=== PATIENT | female | born 1940 | race Caucasian/White ===

== ENCOUNTER 2018-10-08 11:04 | Observation (INO) | payer OTHER, MEDICAID ==
[~2018-10-08] VITALS: Ht 152.4 cm; Wt 38.1 kg
[~2018-10-08 11:04] MED LIST: ALPR1TAB6 PO; ASCO500T3 PO; ASPI-630 PO; CALC500T30 PO; DOXY100C14 PO; FOLI1TAB16 PO; MELA3TAB2 PO; PRED20TA PO; VITA1TAB19 PO
--- NOTE | 2018-10-08 11:58 | RAD ---
Indication:Shortness of breath TECHNIQUE:Portable AP chest X-ray COMPARISON: 09/26/2018. FINDINGS: Heart is normal in size. Stable silhouetting of the right hemidiaphragm. Interstitial opacities are seen. No pneumothorax. Severe bilateral glenohumeral joint osteoarthritis. Otherwise, visualized bony thorax is within normal limits. IMPRESSION: 1. Consolidation in the right lung base may be secondary to atelectasis or pneumonia. Small stable right pleural effusion. 2. Stable Interstitial opacities bilaterally may be secondary to interstitial pulmonary edema, chronic interstitial changes or atypical/viral infection. Electronically signed by: Braydon Romero DO (10/08/2018 11:55 AM) [facility]
[2018-10-08] MEDS ORDERED: IPRATRPIUM/ALBUTEROL 0.5/2.5MG 3 ML NEBU. NEB ONE (12:30)
[2018-10-08] MEDS ORDERED: IV NORMAL SALINE 1000ML BAG 1,000 ML IV ONE (12:30)
[2018-10-08 12:44] LABS: BASO % 0 % (0-3); EOS % 0 % (0-3); HEMATOCRIT 30.9 % (36.0-47.0); HEMOGLOBIN 10.6 g/dL (12.0-15.5); LYMPH # 0.2 x10^3/uL (1.0-4.8); LYMPH % 3 % (24-48); MEAN CORPUSCULAR HEMOGLOBIN 31 pg (25-35); MEAN CORPUSCULAR HGB CONC 34 g/dL (31-37); MEAN CORPUSCULAR VOLUME 91 fL (79-100); MONO # 0.3 x10^3/uL (0.0-1.1); MONO % 6 % (0-9); NEUT # 4.8 x10^3/uL (1.8-7.7); NEUT % 91 % (31-73); PLATELET COUNT 127 x10^3/uL (140-400); RED BLOOD COUNT 3.41 x10^6/uL (3.50-5.40); RED CELL DISTRIBUTION WIDTH 13.2 % (11.5-14.5); WHITE BLOOD COUNT 5.3 x10^3/uL (4.0-11.0)
[2018-10-08 12:53] LABS: BILIRUBIN,URINE NEGATIVE (NEG); CLARITY,URINE CLEAR; COLOR,URINE YELLOW; NITRITE,URINE NEGATIVE (NEG); PH,URINE 6.5; PROTEIN,URINE NEGATIVE (NEG-TRACE); UROBILINOGEN,URINE 0.2 mg/dL (0.2 mg/dL)
[2018-10-08 12:53] LABS: CALCIUM 8.7 mg/dL (8.5-10.1); GFR 53.6; POTASSIUM 4.3 mmol/L (3.5-5.1)
[2018-10-08 12:59] LABS: ALBUMIN 2.4 g/dL (3.4-5.0); ALBUMIN/GLOBULIN RATIO 0.7 (1.0-1.7); TOTAL BILIRUBIN 0.9 mg/dL (0.2-1.0); TOTAL PROTEIN 5.9 g/dL (6.4-8.2)
[2018-10-08 13:16] LABS: BACTERIA,URINE 0 /HPF (0-FEW); RBC,URINE OCC /HPF (0-2); SQUAMOUS EPITHELIAL CELL,UR OCC /LPF; WBC,URINE 0 /HPF (0-4)
[2018-10-08 13:19] LABS: % BANDS 3 % (0-9); % LYMPHS 8 % (24-48); % MONOS 2 % (0-10); % SEGS 87 % (35-66); PLT ESTIMATE ADEQUATE (ADEQUATE)
--- NOTE | 2018-10-08 14:55 | PHYS DOC ---
Past Medical History Past Medical History: Cancer, COPD, GERD Additional Past Medical Histor: Chronic back pain Past Surgical History: Appendectomy, Hysterectomy, Tonsillectomy Additional Past Surgical Histo: Bilateral mastectomy, back stimulator Alcohol Use: None Drug Use: None Adult General Chief Complaint Chief Complaint: SHORTNESS OF BREATH [facility] HPI Patient is a 78 year old female with history of stage IV lung cancer who is DNR, history COPD, history of right-sided pleural effusion, was brought here by EMS for evaluation of altered mental status and hypoxia. She is on 4 L oxygen at home chronically. Family checked her oxygen saturation today and it was fluctuating between 45% to 60% on 4 L. Patient is on oxycodone for pain every 4 hours. Patient was given 2 tablets of oxycodone last night but patient did not take them. Then this morning patient was given 2 more tablets of oxycodone and after about 30 minutes later family found HER to be very confused and so mnolent. They suspected that patient took a total of 4 tablets of of oxycodone. Patient was admitted here on September, was discharged on September 29, she was treated for COPD, pneumonia, right pleural effusion. There was no report of fever. Her family stated that patient was able to walk around yesterday with a walker, however today she had been in bed most of the time. Her family IS also concerned that she might be dehydrated. Review of Systems Review of Systems Constitutional: Denies fever or chills [] Eyes: Denies change in visual acuity, redness, or eye pain [] HENT: Denies nasal congestion or sore throat [] Respiratory: Positive for cough and shortness of breath [] Cardiovascular: No additional information not addressed in HPI [] GI: Denies abdominal pain, nausea, vomiting, bloody stools or diarrhea [] : Denies dysuria or hematuria [] Musculoskeletal: Denies back pain or joint pain [] Integument: Denies rash or skin lesions [] Neurologic: Denies headache, focal weakness or sensory changes. Positive for confusion, ALTERED MENTAL STATUS. Endocrine: Denies polyuria or polydipsia [] All other systems were reviewed and found to be within normal limits, except as documented in this note. Current Medications Current Medications Current Medications Medications (Trade) Dose Ordered Sig/Jf Start Time Stop Time Status Last Admin Dose Admin Albuterol/ Ipratropium (Duoneb) 3 ml 1X ONCE 10/08/18 12:30 10/08/18 12:31 DC 10/08/18 13:08 3 ML Sodium Chloride 1,000 ml @ 1,000 mls/hr 1X ONCE 10/08/18 12:30 10/08/18 13:29 DC 10/08/18 12:53 1,000 MLS/HR Allergies Allergies Allergies Coded Allergies Type Severity Reaction Last Updated Verified alendronate sodium Adverse Reaction Intermediate NAUSEA AND VOMITING 09/26/18 Yes aspirin Adverse Reaction Intermediate NAUSEA AND VOMITING 09/26/18 Yes Physical Exam Physical Exam Constitutional: Well developed, APPEARED SOMNOLENT, DEHYDRATED HENT: Normocephalic, atraumatic, bilateral external ears normal, oropharynx IS DRIED, no oral exudates, nose normal. [] Eyes: PERRLA, EOMI, conjunctiva normal, no discharge. [] Neck: Normal range of motion, no tenderness, supple, no stridor. [] Cardiovascular:Heart rate regular rhythm, no murmur [] Lungs & Thorax: DECREASE AIR MOVEMENT IN RIGHT LUNG BASE. Abdomen: Bowel sounds normal, soft, no tenderness, no masses, no pulsatile masses. [] Skin: Warm, dry, no erythema, no rash. [] Back: No tenderness, no CVA tenderness. [] Extremities: No tenderness, no cyanosis, no clubbing, ROM intact, no edema. [] Neurologic: Patient appeared somnolent, was able to wake up and make eye contact, talking but then went right back to sleep, normal motor function, normal sensory function, no focal deficits noted. [] Psychologic: Affect normal, judgement normal, mood normal. [] Current Patient Data Vital Signs Vital Signs Date Time Temp Pulse Resp B/P (MAP) Pulse Ox O2 Delivery O2 Flow Rate FiO2 10/08/18 15:00 102 30 89/47 (61) 95 Nasal Cannula 6.0 10/08/18 11:04 98.2 98.2 Lab Values Laboratory Tests Test 10/08/18 12:04 10/08/18 12:28 Urine Collection Type U cath Urine Color Yellow Urine Clarity Clear Urine pH 6.5 Urine Specific [place] 1.020 Urine Protein Negative mg/dL (NEG-TRACE) Urine Glucose (UA) Negative mg/dL (NEG) Urine Ketones (Stick) Negative mg/dL (NEG) Urine Blood Negative (NEG) Urine Nitrite Negative (NEG) Urine Bilirubin Negative (NEG) Urine Urobilinogen Dipstick 0.2 mg/dL (0.2 mg/dL) Urine Leukocyte Esterase Negative (NEG) Urine RBC Occ /HPF (0-2) Urine WBC 0 /HPF (0-4) Urine Squamous Epithelial Cells Occ /LPF Urine Bacteria 0 /HPF (0-FEW) White Blood Count 5.3 x10^3/uL (4.0-11.0) Red Blood Count 3.41 x10^6/uL (3.50-5.40) L Hemoglobin 10.6 g/dL (12.0-15.5) L Hematocrit 30.9 % (36.0-47.0) L Mean Corpuscular Volume 91 fL (79-100) Mean Corpuscular Hemoglobin 31 pg (25-35) Mean Corpuscular Hemoglobin Concent 34 g/dL (31-37) Red Cell Distribution Width 13.2 % (11.5-14.5) Platelet Count 127 x10^3/uL (140-400) L Neutrophils (%) (Auto) 91 % (31-73) H Lymphocytes (%) (Auto) 3 % (24-48) L Monocytes (%) (Auto) 6 % (0-9) Eosinophils (%) (Auto) 0 % (0-3) Basophils (%) (Auto) 0 % (0-3) Neutrophils # (Auto) 4.8 x10^3/uL (1.8-7.7) Lymphocytes # (Auto) 0.2 x10^3/uL (1.0-4.8) L Monocytes # (Auto) 0.3 x10^3/uL (0.0-1.1) Eosinophils # (Auto) 0.0 x10^3/uL (0.0-0.7) Basophils # (Auto) 0.0 x10^3/uL (0.0-0.2) Segmented Neutrophils % 87 % (35-66) H Band Neutrophils % 3 % (0-9) Lymphocytes % 8 % (24-48) L Monocytes % 2 % (0-10) Platelet Estimate Adequate (ADEQUATE) Sodium Level 134 mmol/L (136-145) L Potassium Level 4.3 mmol/L (3.5-5.1) Chloride Level 95 mmol/L (98-107) L Carbon Dioxide Level 30 mmol/L (21-32) Anion Gap 9 (6-14) Blood Urea Nitrogen 21 mg/dL (7-20) H Creatinine 1.0 mg/dL (0.6-1.0) Estimated GFR (Cockcroft-Gault) 53.6 BUN/Creatinine Ratio 21 (6-20) H Glucose Level 132 mg/dL (70-99) H Lactic Acid Level 1.3 mmol/L (0.4-2.0) Calcium Level 8.7 mg/dL (8.5-10.1) Total Bilirubin 0.9 mg/dL (0.2-1.0) Aspartate Amino Transferase (AST) 21 U/L (15-37) Alanine Aminotransferase (ALT) 17 U/L (14-59) Alkaline Phosphatase 64 U/L (46-116) Total Protein 5.9 g/dL (6.4-8.2) L Albumin 2.4 g/dL (3.4-5.0) L Albumin/Globulin Ratio 0.7 (1.0-1.7) L Laboratory Tests 10/08/18 12:28 Laboratory Tests 10/08/18 12:28 EKG EKG [] Radiology/Procedures Radiology/Procedures [][facility] [address] [place] [address] IMAGING REPORT Signed PATIENT: VERONICA HAMEED ACCOUNT: [id number] : 1940 LOCATION: ER AGE: 78 SEX: F EXAM STATUS: REG ER ORD. PHYSICIAN: DAYTON PACHECO DO REASON: SOA PROCEDURE: CHEST AP ONLY Indication:Shortness of breath TECHNIQUE:Portable AP chest X-ray COMPARISON: 09/26/2018. FINDINGS: Heart is normal in size. Stable silhouetting of the right hemidiaphragm. Interstitial opacities are seen. No pneumothorax. Severe bilateral glenohumeral joint osteoarthritis. Otherwise, visualized bony thorax is within normal limits. IMPRESSION: 1. Consolidation in the right lung base may be secondary to atelectasis or pneumonia. Small stable right pleural effusion. 2. Stable Interstitial opacities bilaterally may be secondary to interstitial pulmonary edema, chronic interstitial changes or atypical/viral infection. Electronically signed by: Braydon Romero DO (10/08/2018 11:55 AM) [facility] DICTATED and SIGNED BY: BRAYODN ROMERO DO DATE: 10/08/18 7561 Course & Med Decision Making Course & Med Decision Making Pertinent Labs and Imaging studies reviewed. (See chart for details) Patient is a 70-year-old female with history of lung cancer, COPD, suspect of accidental overdose on her pain medication. She'll be admitted to hospital for observation. Dragon Disclaimer Dragon Disclaimer This electronic medical record was generated, in whole or in part, using a voice recognition dictation system. Departure Departure Impression: Primary Impression: Lung cancer Additional Impressions: COPD (chronic obstructive pulmonary disease) Altered mental status Accidental drug overdose Disposition: 09 ADMITTED INPATIENT Admitting Physician: VIELKA Condition: STABLE Referrals: TERRI MAGALLANES MD (PCP) Problem Qualifiers DAYTON PACHECO DO Oct 08, 2018 14:55
[2018-10-08] MEDS ORDERED: ONDANSETRON PF 4 MG/2 ML VIAL. IV PRN (15:45)
[2018-10-08] MEDS ORDERED: IPRATRPIUM/ALBUTEROL 0.5/2.5MG 3 ML NEBU. NEB SCH ×2 (16:00→20:00)
[2018-10-08 16:50] VITALS: BP 91/36
[2018-10-08] MEDS ORDERED: IV NORMAL SALINE 1000ML BAG 1,000 ML IV SCH (17:30)
[2018-10-08] MEDS ORDERED: ACETAMINOPHEN 325 MG TABLET. PO PRN (17:30)
[2018-10-08] MEDS ORDERED: PIPERACILLIN/TAZOBACTAM 3.375 GM in IV NORMAL SALINE 50ML 50 ML IV SCH (18:00)
[2018-10-08 19:00] VITALS: BP 86/46
--- NOTE | 2018-10-08 20:07 | PDOC1 ---
History and Physical Date of Admission Date of Admission DATE: 10/08/18 TIME: 20:06 Identification/Chief Complaint Chief Complaint seen in er, 78 year old female with history of stage IV lung cancer who is DNR, history COPD, history of right-sided pleural effusion, was brought here by EMS for evaluation of altered mental status and hypoxia. She is on 4 L oxygen at home chronically. Family checked her oxygen saturation today and it was fluctuating between 45% to 60% on 4 L. Patient is on oxycodone for pain every 4 hours. Patient was given 2 tablets of oxycodone last night but patient did not take them. this morning patient was given 2 more tablets of oxycodone and after about 30 minutes later family found HER to be very confused and somnolent. it is suspected that patient took a total of 4 tablets of of oxycodone this AM. admitted here on September, was discharged on September 29, she was treated for COPD, pneumonia, right pleural effusion. noted to be febrile on admit to floor Past Medical History Past Medical History Past Medical History Past Medical History: Cancer, COPD, GERD Additional Past Medical Histor: Chronic back pain Past Surgical History: Appendectomy, Hysterectomy, Tonsillectomy Additional Past Surgical Histo: Bilateral mastectomy, back stimulator Alcohol Use: None Drug Use: None family hx htn Cardiovascular: No pertinent hx Pulmonary: Other Heme/Onc: Cancer Hepatobiliary: No pertinent hx Psych: No pertinent hx Musculoskeletal: low back pain Rheumatologic: No pertinent hx Endocrine: No pertinent hx Past Surgical History Past Surgical History: No pertinent history Family History Family History: No Significant, Hypertension Social History Smoke: No ALCOHOL: none Drugs: None Current Problem List Problem List Problems Medical Problems: (1) Accidental drug overdose Status: Acute (2) Altered mental status Status: Acute (3) COPD (chronic obstructive pulmonary disease) Status: Acute (4) Lung cancer Status: Acute Current Medications Current Medications Current Medications Sodium Chloride 1,000 ml @ 1,000 mls/hr 1X ONCE IV Last administered on 10/08/18at 12:53; Start 10/08/18 at 12:30; Stop 10/08/18 at 13:29; Status DC Albuterol/ Ipratropium (Duoneb) 3 ml 1X ONCE NEB Last administered on 10/08/18at 13:08; Start 10/08/18 at 12:30; Stop 10/08/18 at 12:31; Status DC Ondansetron HCl (Zofran) 4 mg PRN Q8HRS PRN IV NAUSEA/VOMITING; Start 10/08/18 at 15:45; Stop 10/09/18 at 15:44 Albuterol/ Ipratropium (Duoneb) 3 ml RTQID NEB Last administered on 10/08/18at 16:19; Start 10/08/18 at 16:00; Stop 10/09/18 at 15:59 Piperacillin Sod/ Tazobactam Sod 3.375 gm/Sodium Chloride 50 ml @ 100 mls/hr Q6HRS IV Last administered on 10/08/18at 17:58; Start 10/08/18 at 18:00 Acetaminophen (Tylenol) 650 mg PRN Q6HRS PRN PO MILD PAIN / TEMP Last administered on 10/08/18at 17:58; Start 10/08/18 at 17:30 Sodium Chloride 1,000 ml @ 50 mls/hr Q20H IV Last administered on 10/08/18at 17:30; Start 10/08/18 at 17:30 Albuterol/ Ipratropium (Duoneb) 3 ml RTQID NEB ; Start 10/08/18 at 20:00 Active Scripts Active Reported Alprazolam 1 Mg Tablet 1 Tab PO PRN DAILY Calcium (Calcium Carbonate) 500 Mg Tablet 1,000 Mg PO DAILY08 Aspirin 81 Mg Tab.chew 1 Tab PO DAILY Folic Acid 1 Mg Tablet 1 Tab PO BID Melatonin 3 Mg Tablet 1 Tab PO PRN DAILY Allergies Allergies: Coded Allergies: alendronate sodium (Verified Adverse Reaction, Intermediate, NAUSEA AND VOMITING, 09/26/18) aspirin (Verified Adverse Reaction, Intermediate, NAUSEA AND VOMITING, 09/26/18) ROS Review of System Eyes: Denies change in visual acuity, redness, or eye pain [] HENT: Denies nasal congestion or sore throat [] Respiratory: Positive for cough and shortness of breath [] Cardiovascular: No additional information not addressed in HPI [] GI: Denies abdominal pain, nausea, vomiting, bloody stools or diarrhea [] : Denies dysuria or hematuria [] Musculoskeletal: Denies back pain or joint pain [] Integument: Denies rash or skin lesions [] Neurologic: Denies headache, focal weakness or sensory changes. Positive for confusion, ALTERED MENTAL STATUS. Endocrine: Denies polyuria or polydipsia [] 14 PT systems were reviewed and found to be within normal limits, except as documented. Physical Exam Physical Exam Physical Exam Physical Exam Constitutional: Well developed, APPEARED SOMNOLENT, DEHYDRATED HENT: Normocephalic, atraumatic, bilateral external ears normal, oropharynx IS DRY, no oral exudates, nose normal. [] Eyes: PERRLA, EOMI, conjunctiva normal, no discharge. [] Neck: Normal range of motion, no tenderness, supple, no stridor. [] Cardiovascular:Heart rate regular rhythm, no murmur [] Lungs & Thorax: DECREASE AIR MOVEMENT IN RIGHT LUNG BASE. Abdomen: Bowel sounds normal, soft, no tenderness, no masses, no pulsatile emmanuel s. [] Skin: Warm, dry, no erythema, no rash. [] Back: No tenderness, no CVA tenderness. [] Extremities: No tenderness, no cyanosis, no clubbing, ROM intact, no edema. [] Neurologic: Patient appeared somnolent, was able to wake up and make eye contact, talking but then went right back to sleep, normal motor function, normal sensory function, no focal deficits noted. [] Psychologic: Affect normal, judgement normal, mood flat . [] Breasts: Not examined Vitals Vitals Vital Signs Date Time Temp Pulse Resp B/P (MAP) Pulse Ox O2 Delivery O2 Flow Rate FiO2 10/08/18 19:00 98.3 105 20 86/46 (59) 98 Nasal Cannula 6.0 98.3 Labs Labs Laboratory Tests Test 10/08/18 12:04 10/08/18 12:28 10/08/18 16:25 Urine Collection Type U cath Urine Color Yellow Urine Clarity Clear Urine pH 6.5 Urine Specific [place] 1.020 Urine Protein Negative mg/dL (NEG-TRACE) Urine Glucose (UA) Negative mg/dL (NEG) Urine Ketones (Stick) Negative mg/dL (NEG) Urine Blood Negative (NEG) Urine Nitrite Negative (NEG) Urine Bilirubin Negative (NEG) Urine Urobilinogen Dipstick 0.2 mg/dL (0.2 mg/dL) Urine Leukocyte Esterase Negative (NEG) Urine RBC Occ /HPF (0-2) Urine WBC 0 /HPF (0-4) Urine Squamous Epithelial Cells Occ /LPF Urine Bacteria 0 /HPF (0-FEW) White Blood Count 5.3 x10^3/uL (4.0-11.0) Red Blood Count 3.41 x10^6/uL (3.50-5.40) Hemoglobin 10.6 g/dL (12.0-15.5) Hematocrit 30.9 % (36.0-47.0) Mean Corpuscular Volume 91 fL (79-100) Mean Corpuscular Hemoglobin 31 pg (25-35) Mean Corpuscular Hemoglobin Concent 34 g/dL (31-37) Red Cell Distribution Width 13.2 % (11.5-14.5) Platelet Count 127 x10^3/uL (140-400) Neutrophils (%) (Auto) 91 % (31-73) Lymphocytes (%) (Auto) 3 % (24-48) Monocytes (%) (Auto) 6 % (0-9) Eosinophils (%) (Auto) 0 % (0-3) Basophils (%) (Auto) 0 % (0-3) Neutrophils # (Auto) 4.8 x10^3/uL (1.8-7.7) Lymphocytes # (Auto) 0.2 x10^3/uL (1.0-4.8) Monocytes # (Auto) 0.3 x10^3/uL (0.0-1.1) Eosinophils # (Auto) 0.0 x10^3/uL (0.0-0.7) Basophils # (Auto) 0.0 x10^3/uL (0.0-0.2) Segmented Neutrophils % 87 % (35-66) Band Neutrophils % 3 % (0-9) Lymphocytes % 8 % (24-48) Monocytes % 2 % (0-10) Platelet Estimate Adequate (ADEQUATE) Sodium Level 134 mmol/L (136-145) Potassium Level 4.3 mmol/L (3.5-5.1) Chloride Level 95 mmol/L (98-107) Carbon Dioxide Level 30 mmol/L (21-32) Anion Gap 9 (6-14) Blood Urea Nitrogen 21 mg/dL (7-20) Creatinine 1.0 mg/dL (0.6-1.0) Estimated GFR (Cockcroft-Gault) 53.6 BUN/Creatinine Ratio 21 (6-20) Glucose Level 132 mg/dL (70-99) Lactic Acid Level 1.3 mmol/L (0.4-2.0) 2.1 mmol/L (0.4-2.0) Calcium Level 8.7 mg/dL (8.5-10.1) Total Bilirubin 0.9 mg/dL (0.2-1.0) Aspartate Amino Transf (AST/SGOT) 21 U/L (15-37) Alanine Aminotransferase (ALT/SGPT) 17 U/L (14-59) Alkaline Phosphatase 64 U/L (46-116) Total Protein 5.9 g/dL (6.4-8.2) Albumin 2.4 g/dL (3.4-5.0) Albumin/Globulin Ratio 0.7 (1.0-1.7) Laboratory Tests Test 10/08/18 12:04 10/08/18 12:28 10/08/18 16:25 Urine Collection Type U cath Urine Color Yellow Urine Clarity Clear Urine pH 6.5 Urine Specific [place] 1.020 Urine Protein Negative mg/dL (NEG-TRACE) Urine Glucose (UA) Negative mg/dL (NEG) Urine Ketones (Stick) Negative mg/dL (NEG) Urine Blood Negative (NEG) Urine Nitrite Negative (NEG) Urine Bilirubin Negative (NEG) Urine Urobilinogen Dipstick 0.2 mg/dL (0.2 mg/dL) Urine Leukocyte Esterase Negative (NEG) Urine RBC Occ /HPF (0-2) Urine WBC 0 /HPF (0-4) Urine Squamous Epithelial Cells Occ /LPF Urine Bacteria 0 /HPF (0-FEW) White Blood Count 5.3 x10^3/uL (4.0-11.0) Red Blood Count 3.41 x10^6/uL (3.50-5.40) Hemoglobin 10.6 g/dL (12.0-15.5) Hematocrit 30.9 % (36.0-47.0) Mean Corpuscular Volume 91 fL (79-100) Mean Corpuscular Hemoglobin 31 pg (25-35) Mean Corpuscular Hemoglobin Concent 34 g/dL (31-37) Red Cell Distribution Width 13.2 % (11.5-14.5) Platelet Count 127 x10^3/uL (140-400) Neutrophils (%) (Auto) 91 % (31-73) Lymphocytes (%) (Auto) 3 % (24-48) Monocytes (%) (Auto) 6 % (0-9) Eosinophils (%) (Auto) 0 % (0-3) Basophils (%) (Auto) 0 % (0-3) Neutrophils # (Auto) 4.8 x10^3/uL (1.8-7.7) Lymphocytes # (Auto) 0.2 x10^3/uL (1.0-4.8) Monocytes # (Auto) 0.3 x10^3/uL (0.0-1.1) Eosinophils # (Auto) 0.0 x10^3/uL (0.0-0.7) Basophils # (Auto) 0.0 x10^3/uL (0.0-0.2) Segmented Neutrophils % 87 % (35-66) Band Neutrophils % 3 % (0-9) Lymphocytes % 8 % (24-48) Monocytes % 2 % (0-10) Platelet Estimate Adequate (ADEQUATE) Sodium Level 134 mmol/L (136-145) Potassium Level 4.3 mmol/L (3.5-5.1) Chloride Level 95 mmol/L (98-107) Carbon Dioxide Level 30 mmol/L (21-32) Anion Gap 9 (6-14) Blood Urea Nitrogen 21 mg/dL (7-20) Creatinine 1.0 mg/dL (0.6-1.0) Estimated GFR (Cockcroft-Gault) 53.6 BUN/Creatinine Ratio 21 (6-20) Glucose Level 132 mg/dL (70-99) Lactic Acid Level 1.3 mmol/L (0.4-2.0) 2.1 mmol/L (0.4-2.0) Calcium Level 8.7 mg/dL (8.5-10.1) Total Bilirubin 0.9 mg/dL (0.2-1.0) Aspartate Amino Transf (AST/SGOT) 21 U/L (15-37) Alanine Aminotransferase (ALT/SGPT) 17 U/L (14-59) Alkaline Phosphatase 64 U/L (46-116) Total Protein 5.9 g/dL (6.4-8.2) Albumin 2.4 g/dL (3.4-5.0) Albumin/Globulin Ratio 0.7 (1.0-1.7) Images Images A masslike area is seen medial aspect of the inferior right upper lobe which measures 3.6 cm in greatest diameter. This likely reflects the patient's known lung cancer. Right middle lobe atelectasis is seen. There is a small to moderate-sized right pleural effusion. Right lower lobe atelectasis and or infiltrate is noted. Emphysematous changes are seen involving both lungs. Areas of subsegmental atelectasis are seen involving the lingula of the left upper lobe along with the inferior aspect of the left lower lobe. Leads from a neurostimulator are unchanged. Indication:Shortness of breath TECHNIQUE:Portable AP chest X-ray COMPARISON: 09/26/2018. FINDINGS: Heart is normal in size. Stable silhouetting of the right hemidiaphragm. Interstitial opacities are seen. No pneumothorax. Severe bilateral glenohumeral joint osteoarthritis. Otherwise, visualized bony thorax is within normal limits. IMPRESSION: 1. Consolidation in the right lung base may be secondary to atelectasis or pneumonia. Small stable right pleural effusion. 2. Stable Interstitial opacities bilaterally may be secondary to interstitial pulmonary edema, chronic interstitial changes or atypical/viral infection. Electronically signed by: Braydon Longo DO (10/08/2018 11:55 AM) [facility] DICTATED and SIGNED BY: BRAYDON LONGO DO DATE: 10/08/18 1155 VTE Prophylaxis Ordered VTE Prophylaxis Devices: No VTE Pharmacological Prophylaxi: Yes Assessment/Plan Assessment/Plan IMPRESSION PROBABLE ACCIDENTAL overdose of oxycodone cough, dyspnea, ACUTE HYPOXIC RESP FAILURE productive cough, POSSIBLE aspiration pneumonitis/ SEPSIS Lung cancer stage IV A masslike area is seen medial aspect of the inferior right upper lobe which measures 3.6 cm in greatest diameter. This likely reflects the patient's known lung cancer. Emphysematous changes ON CT underweight, BMI 16.4, MODERATE malnutrition plan blood cult DNR EMPERIC IV ANTIBIOTICS O2 SUPPORT DUONEBS QID PULM CONSULT ONCOLOGY CONSULT HOLD SEDATING MEDS AND NARCOTICS ID CONSULT BLOOD CULT 78 min pt exam, chart review, > 50% of time spent with exam, chart review, pt care coordination TAMMY WOLFE MD Oct 08, 2018 20:07
[2018-10-08] MEDS ORDERED: PANT40TA77 PO (20:16)
[2018-10-08] MEDS ORDERED: MIRT15TA PO (20:16)
[2018-10-08] MEDS ORDERED: OXYC1TAB15 PO (20:16)
[2018-10-08] MEDS ORDERED: ONDA8TAB9 PO (20:16)
[2018-10-08] MEDS ORDERED: POLY17PO29 PO (20:16)
[2018-10-08] MEDS ORDERED: GUAI600T47 PO (20:16)
[2018-10-08] MEDS ORDERED: METO-239 PO (20:16)
[2018-10-08] MEDS ORDERED: ONDANSETRON ODT 4 MG TAB.RAPDIS. PO PRN (20:30)
[2018-10-08] MEDS ORDERED: LACTOBACILLUS RHAMNOSUS GG 1 CAPSULE. PO SCH (21:00)
[2018-10-08] MEDS ORDERED: FOLIC ACID 1 MG TABLET. PO SCH (21:00)
[2018-10-08] MEDS ORDERED: MEROPENEM 500 MG in IV NORMAL SALINE 50ML 50 ML IV SCH (22:00)
--- NOTE | 2018-10-08 23:32 | NUR ---
Pt had been so short of air, crackly sounds, tachypneic, hypotensive 80's/40's. Had been running within that range first shift. 02 @ 98%. Family @ bedside. Admitting physician notified of findings. The brother mentioned that the pt has palliative consult for this coming week. The brother was informed that palliative care/consult can be done here and pt can be given iv pain meds for comfort measures. The brother did ask for the pt's oxycodone but this RN explained to him that usually physician would hold meds like that because they can mask the pt's level of consciousness ronit pt came in with altered mental status. But with comfort measures in mind, going in that direction, doctors do order iv pain meds. Brother was OK with that. This RN mentioned to brother that pt isnt doing good. Pt continues to be tachypneic and SOA. While trying to page Dr for orders, family called RN of pt's condition. Upon checking on pt, theres no spontaneous respiration, No pulse, non responsive. Emotional support given, Brianna, nursing wet room supervisor notified and came up to unit and talked to the family. Family appreciative. Post mortem care given after family left.
[2018-10-09] MEDS ORDERED: PANTOPRAZOLE 40 MG TABLET.DR. PO SCH (07:30)
[2018-10-09] MEDS ORDERED: CALCIUM CARBONATE 500 MG TABLET PO SCH (08:00)
[2018-10-09] MEDS ORDERED: POLYETHYLENE GLYCOL 3350 17 GM PACKET. PO PRN (09:00)
[2018-10-09] MEDS ORDERED: METOPROLOL SUCC 24HR ER 25 MG TAB.ER.24H. PO SCH (09:00)
[2018-10-09] MEDS ORDERED: ASPIRIN CHEWABLE 81 MG TABLET. PO SCH (09:00)
== END 2018-10-08 23:20 | disposition expired ==
LOC: ER 11:04 → 5 NORTH 15:29
PROVIDERS: ADMIT Family Medicine; ATTEND Family Medicine
DX: T40.2X1A Poisoning by other opioids, accidental (unintentional), initial encounter (principal); Y92.89 Other specified places as the place of occurrence of the external cause; R41.82 Altered mental status, unspecified; J44.9 Chronic obstructive pulmonary disease, unspecified; C34.90 Malignant neoplasm of unspecified part of unspecified bronchus or lung; J96.01 Acute respiratory failure with hypoxia; K21.9 Gastro-esophageal reflux disease without esophagitis; Z90.13 Acquired absence of bilateral breasts and nipples; Z90.49 Acquired absence of other specified parts of digestive tract; Z90.710 Acquired absence of both cervix and uterus; Z99.81 Dependence on supplemental oxygen; Z82.49 Family history of ischemic heart disease and other diseases of the circulatory system
CPT/HCPCS: 36415; 71045; 80053; 81001; 83605; 85007; 85025; 87040; 87205; 94640; 96361; 96365; 96367; 99284; G0378; J2185; J2543; J7030; J7620; G0379